=== PATIENT | male | born 1975 | race Asian ===

== ENCOUNTER 2019-06-15 12:23 | Inpatient (IN) | payer MEDICARE ==
[~2019-06-15] VITALS: Ht 160 cm; Wt 50.8 kg
[~2019-06-15 12:23] MED LIST: OLAN405V IM
[2019-06-15 13:57] VITALS: BP 146/76
[2019-06-15] MEDS ORDERED: LORazepam 2 MG TABLET PO PRN (14:00)
[2019-06-15] MEDS ORDERED: ZOLPIDEM TARTRATE 10 MG TABLET PO PRN (14:00)
[2019-06-15] MEDS ORDERED: HALOPERIDOL 5 MG TABLET PO PRN (14:00)
[2019-06-15] MEDS ORDERED: PNEUMOCOCCAL VACCINE POLYVALENT 0.5 ML VIAL [PPSV23] IM ONE (15:00)
[2019-06-15 16:16] VITALS: BP 136/59
[2019-06-16 00:38] VITALS: BP 103/60
[2019-06-16 08:24] VITALS: BP 112/64
[2019-06-16] MEDS: ARIPiprazole 10 MG TABLET PO SCH (10:15)
[2019-06-16 16:08] VITALS: BP 112/69
[2019-06-16] MEDS: NICOTINE 14 MG/24 HOUR PATCH TD SCH (17:16)
[2019-06-17 00:44] VITALS: BP 102/70
[2019-06-17] MEDS: ARIPiprazole 10 MG TABLET PO SCH (08:13)
[2019-06-17] MEDS: NICOTINE 14 MG/24 HOUR PATCH TD SCH (08:18)
[2019-06-17 08:30] VITALS: BP 106/60
[2019-06-17 16:13] VITALS: BP 102/58
[2019-06-18 01:55] VITALS: BP 99/60
[2019-06-18 07:45] LABS: BASOPHILS % (AUTO) 0.7 % (0.0-2.0); EOSINOPHILS % (AUTO) 2.9 % (1.0-6.0); HEMATOCRIT 41.5 % (41-53); HEMOGLOBIN 14.4 g/dL (13.5-17.5); LYMPHOCYTES # (AUTO) 1.9 K/uL (1.0-4.8); LYMPHOCYTES % (AUTO) 23.3 % (22.0-44.0); MEAN CORPUSCULAR HEMOGLOBIN 33.7 pg (26.0-34.0); MEAN CORPUSCULAR HGB CONC 34.8 G/dL (31.0-37.0); MEAN CORPUSCULAR VOLUME 97 fL (80-100); MONOCYTES # (AUTO) 0.9 K/uL (0.1-1.0); MONOCYTES % (AUTO) 11.6 % (2.0-9.0); NEUTROPHILS # (AUTO) 4.9 K/uL (1.8-7.7); NEUTROPHILS % (AUTO) 61.5 % (40.0-70.0); PLATELET COUNT (AUTO) 333 K/uL (150-450); RED BLOOD CELL COUNT(AUTO) 4.29 MIL/uL (4.50-5.90); RED CELL DISTRIBUTION WIDTH 13.8 % (11.5-14.5)
[2019-06-18 08:00] VITALS: BP 112/68
[2019-06-18 08:20] LABS: ALANINE AMINOTRANSFERASE 28 U/L (12-78); ALBUMIN 3.9 g/dL (3.4-5.0); ALKALINE PHOSPHATASE 74 U/L (46-116); ANION GAP 7 mmol/L (8-16); ASPARTATE AMINOTRANSFERASE 29 U/L (15-37); BILIRUBIN,TOTAL 0.2 mg/dL (0.1-1.0); CALCIUM, TOTAL 8.8 mg/dL (8.8-10.5); CARBON DIOXIDE 29 mmol/L (22-29); CHLORIDE 100 mmol/L (98-107); CHOL/HDL RATIO 5.1 (4.2-7.3); CHOLESTEROL 195 mg/dL (131-200); CREATININE 0.67 mg/dL (0.60-1.30); FREE T4 (FREE THYROXINE) 1.16 ng/dL (0.76-1.46); GLOMERULAR FILTR. RATE CALC > 60 mL/min (>60); GLUCOSE,RANDOM 81 mg/dL (70-110); HDL CHOLESTEROL 38 mg/dL (40-60); LDL CHOL (CALC.) 112 mg/dL (0-130); POTASSIUM 4.3 mmol/L (3.5-5.1); SODIUM SERUM 136 mmol/L (136-145); THYROID STIMULATING HORMONE 0.74 uIU/mL (0.36-3.74); TRIGLYCERIDES 224 mg/dL (15-150); UREA NITROGEN, BLOOD 14 mg/dL (7-18)
[2019-06-18] MEDS: ARIPiprazole 10 MG TABLET PO SCH (08:46)
[2019-06-18] MEDS: NICOTINE 14 MG/24 HOUR PATCH TD SCH (09:00)
[2019-06-18 16:12] VITALS: BP 101/60
== END 2019-06-18 19:02 | disposition home or self-care (01) | DRG 885 ==
LOC: B3A 14:10
DX: F20.0 Paranoid schizophrenia (principal); D64.9 Anemia, unspecified; F10.10 Alcohol abuse, uncomplicated; F19.10 Other psychoactive substance abuse, uncomplicated; R03.0 Elevated blood-pressure reading, without diagnosis of hypertension; Z28.21 Immunization not carried out because of patient refusal; Z79.899 Other long term (current) drug therapy; Z71.41 Alcohol abuse counseling and surveillance of alcoholic; Z71.51 Drug abuse counseling and surveillance of drug abuser
CPT/HCPCS: 84439; 84443; 87081; 90732